=== PATIENT | female | born 1990 | race Caucasian/White ===

== ENCOUNTER 2023-09-13 16:18 | Emergency (ER) | payer MEDICAID ==
[~2023-09-13] VITALS: Ht 160 cm; Wt 70.8 kg
[2023-09-13 16:49] VITALS: BP 140/95; PULSE 78; RESP 18; TEMP 97.5; O2SAT 98
[2023-09-13] MEDS ORDERED: KETOROLAC 30 MG/ML VIAL IM ONE (18:20)
[2023-09-13] MEDS: ACETAMINOPHEN EXTRA STRENGTH 500 MG TAB PO ONE (19:07)
[2023-09-13 19:14] LABS: BASOPHILS # (AUTO) 0.1 K/uL (0.00-0.22); BASOPHILS % (AUTO) 0.7 % (0.0-2.0); EOSINOPHILS # (AUTO) 0.1 K/uL (0-0.4); EOSINOPHILS % (AUTO) 0.9 % (0.0-4.0); HEMATOCRIT 39.2 % (36-48); HEMOGLOBIN 13.3 g/dL (12.0-16.0); LYMPHOCYTES # (AUTO) 2.6 K/uL (2.5-16.5); LYMPHOCYTES % (AUTO) 19.5 % (20.5-51.1); MEAN CORPUSCULAR HEMOGLOBIN 28 pg (27-31); MEAN CORPUSCULAR HGB CONC 34 g/dL (33-37); MEAN CORPUSCULAR VOLUME 82.5 fL (80-94); MONOCYTES # (AUTO) 0.6 K/uL (0.8-1.0); MONOCYTES % (AUTO) 4.3 % (1.7-9.3); NEUTROPHILS # (AUTO) 10.1 K/uL (1.8-7.7); NEUTROPHILS % (AUTO) 74.6 % (42.2-75.2); PLATELET COUNT (AUTO) 386 K/uL (140-450); RED BLOOD CELL COUNT(AUTO) 4.75 MIL/uL (4.20-5.40); RED CELL DISTRIBUTION WIDTH 14.2 % (11.6-13.7); WHITE BLOOD COUNT (AUTO) 13.5 K/uL (4.8-10.8)
[2023-09-13 19:28] LABS: ANION GAP 13.2 (8-16); CALCIUM 9.6 mg/dL (8.5-10.1); CARBON DIOXIDE 27.3 mmol/L (21-32); CREATININE 0.7 mg/dL (0.6-1.3); POTASSIUM 3.5 mmol/L (3.5-5.1)
[2023-09-13 19:43] LABS: ALBUMIN 3.8 g/dL (3.4-5.0); BILIRUBIN,DIRECT 0.1 mg/dL (0.0-0.3); TOTAL BILIRUBIN 0.3 mg/dL (0.0-1.0); TOTAL PROTEIN, SERUM 8.4 g/dL (6.4-8.2)
[2023-09-13 20:30] LABS: FLU A ANTIGEN negative (NEGATIVE); FLU B ANTIGEN NEGATIVE (NEGATIVE)
[2023-09-13] MEDS ORDERED: ACET-2619 PO (20:43)
[2023-09-13] MEDS ORDERED: ONDA-188 PO (20:43)
== END 2023-09-13 20:50 | disposition home or self-care (01) ==
LOC: MED 16:18
DX: O98.511 Other viral diseases complicating pregnancy, first trimester (principal); Z3A.01 Less than 8 weeks gestation of pregnancy; B34.9 Viral infection, unspecified; H92.01 Otalgia, right ear; Z20.822 Contact with and (suspected) exposure to COVID-19
CPT/HCPCS: 36415; 76815; 80048; 80076; 81002; 81025; 83690; 84702; 85025; 87426; 87804; 99284; Q0092